=== PATIENT | female | born 1945 | race Caucasian/White ===

== ENCOUNTER 2017-09-29 10:06 | Emergency (ER) | payer OTHER, MEDICARE ==
[~2017-09-29] VITALS: Ht 157.5 cm; Wt 67.3 kg
[2017-09-29 10:09] VITALS: BP 176/85; TEMP 98.7
[2017-09-29] MEDS ORDERED: GLUCOPHAGE500 MG/TAB PO (10:23)
[2017-09-29] MEDS ORDERED: LIPITOR 40MG TA40 MG PO (10:23)
[2017-09-29] MEDS ORDERED: TRUSOPT OCUMETE10 ML (10:23)
[2017-09-29] MEDS ORDERED: LUMIGAN 5 ML5 M1 OP (10:24)
[2017-09-29] MEDS ORDERED: ASPIRIN 32325 MG/TAB PO (10:24)
[2017-09-29 11:05] VITALS: PULSE 72
== END 2017-09-29 11:00 | disposition home or self-care (01) ==
LOC: COL.ER 10:06
DX: S16.1XXA Strain of muscle, fascia and tendon at neck level, initial encounter (principal); E78.5 Hyperlipidemia, unspecified; E11.9 Type 2 diabetes mellitus without complications; Z79.84 Long term (current) use of oral hypoglycemic drugs; Z79.82 Long term (current) use of aspirin; Z98.51 Tubal ligation status; Z98.890 Other specified postprocedural states; V49.49XA Driver injured in collision with other motor vehicles in traffic accident, initial encounter